=== PATIENT | female | born 1935 | race Caucasian/White ===

== ENCOUNTER → 2019-09-11 | Outpatient (CLI) | payer MEDICARE, BC, OTHER ==
--- NOTE | 2019-09-11 14:35 | REP ---
MRI RIGHT SHOULDER: TECHNIQUE: Axial T2 fat sat, gradient echo, sagittal oblique T2 fat sat, coronal oblique T1, T2 fat sat. There is a complete tear of the supraspinatus tendon with retraction of the musculotendinous junction approximately 3-4 cm. There is a partial tear in the subscapularis tendon. The infraspinatus and teres minor are intact. There is moderate hypertrophic degenerative change of the acromioclavicular joint with mild subchondral marrow edema. There is a type 2 acromion. Moderate fluid surrounds the biceps tendon which is displaced anteromedially out of the bicipital groove. There appears to be a diffuse SLAP tear. There also appears to be fraying or tearing at the biceps labral complex. There is no Hill-Sachs deformity. No abnormal signal is seen in the deltoid muscle. 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 Minimal subchondral marrow edema is seen in the superior humeral head. There is a moderate joint effusion with fluid extending into the subacromial subdeltoid bursae. IMPRESSION: Complete tear supraspinatus tendon with retraction of the musculotendinous junction 3-4 cm. Partial tear of the subscapularis tendon. 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 Somewhat thickened biceps tendon is displaced anteromedially and surrounding by a moderate amount of fluid. There appears to be some degree of fraying or tearing at the biceps labral complex and there also appears to be a SLAP tear present. 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 Moderate joint effusion extending into the subacromial subdeltoid bursae. Electronically Signed by Hal Taylor MD 09/12/2019 09:32 A
== END ==
LOC: M RAD 09:53
PROVIDERS: ATTEND Orthopaedic Surgery Sports Medicine
DX: M75.121 Complete rotator cuff tear or rupture of right shoulder, not specified as traumatic (principal); M94.211 Chondromalacia, right shoulder